=== PATIENT | male | born 1985 | race Caucasian/White ===

== ENCOUNTER 2019-09-17 16:17 | Emergency (ER) | payer OTHER, SELFPAY ==
[2019-09-17 16:48] VITALS: BP 140/71; PULSE 67; RESP 18; TEMP 37; O2SAT 99; BMI 20.9
--- NOTE | 2019-09-17 16:54 | DI.RAD.S_ITS ---
PROCEDURE: XR CHEST 1V INDICATIONS: chest pain TECHNIQUE: One view of the chest was acquired. COMPARISON: None. FINDINGS: Surgical changes and devices: None. Lungs and pleura: Lungs are clear. No pleural effusions or pneumothorax. Mediastinum: Mediastinal contours appear normal. Heart size is normal. Bones and chest wall: No suspicious bony lesions. Overlying soft tissues appear unremarkable. IMPRESSION: Portable chest within normal limits. Dictated by: Surjit Snow M.D. on 09/17/2019 at 16:05 Approved by: Surjit Snow M.D. on 09/17/2019 at 16:05
[2019-09-17 17:20] LABS: Add Manual Diff / Slide Review NO; Basophils Absolute Auto 100 /uL (0-100); Basophils Percent Auto 0.6 % (0-2); Eosinophils Absolute Auto 100 /uL (0-450); Eosinophils Percent Auto 1.2 % (2-4); Hematocrit 45.1 % (41-53); Hemoglobin 15.3 g/dL (13.5-17.5); Lymphocytes Absolute Auto 1400 /uL (1100-4500); Mean Corpuscular HGB Conc 33.8 % (30-36); Mean Corpuscular Hemoglobin 29.6 PG (26-34); Mean Corpuscular Volume 87.5 fL (80-100); Monocytes Absolute Auto 700 /uL (0-900); Monocytes Percent Auto 8.6 % (3-14); Neutrophils Absolute Auto 5900 /uL (1500-7000); Neutrophils Percent Auto 72.6 % (50-75); Platelet Count 283 X10^3/uL (150-400); Red Blood Cell Count 5.15 X10^6/uL (4.5-5.9); Red Cell Distribution Width 13.2 % (11.6-14.8); White Blood Cell Count 8.2 X10^3/uL (4.5-11.0)
[2019-09-17 17:30] LABS: Alanine Aminotransferase 20 IU/L (<50); Albumin 4.9 g/dL (3.5-5.0); Albumin Globulin Ratio 1.6 (1.0-2.8); Alkaline Phosphatase 73 U/L (38-126); Aspartate Aminotransferase 32 IU/L (17-59); BUN Creatinine Ratio 25.3 (6-22); Blood Urea Nitrogen 20 mg/dL (9-20); Calcium 9.6 mg/dL (8.4-10.2); Carbon Dioxide 26 mmol/L (22-32); Chloride 104 mmol/L (98-107); Creatine Kinase 197 U/L (55-170); Estimated Glomerular Filt Rate > 60.0 mL/min (>60); Glucose 84 mg/dL (70-100); HEMOLYSIS < 15 (0-50); Lipase 79 U/L (23-300); Potassium 4.2 mmol/L (3.4-5.1); Sodium 137 mmol/L (137-145); Total Protein 7.9 g/dL (6.3-8.2)
[2019-09-17 17:41] LABS: Troponin I < 0.012 ng/mL (0.01-0.034)
[2019-09-17 17:45] LABS: CKMB % Relative Index 0.3 % (1.5-5.0); Creatine Kinase MB 0.53 ng/mL (<2.37)
--- NOTE | 2019-09-17 18:47 | ED.CHESTPAIN ---
HPI - Chest Pain General Chief Complaint: Chest Pain Stated Complaint: nausea,dizziness,heart pains, tightness Time Seen by Provider: 09/17/19 18:47 Source: patient Mode of arrival: Ambulatory Limitations: no limitations History of Present Illness HPI narrative: 33-year-old gentleman presents with severe reflux type symptoms for the last 3 days, concurrent black diarrhea, dizziness and heart irregularities. On further questioning he has been taking Pepto-Bismol to help with the reflux which likely explains the black diarrhea that he has been having. The heart irregularities have been going on for a number of years are not associated with exercise, pain dyspnea or diaphoresis. He notices them most when he is almost ready to go to sleep and everything is calm and quiet and notes more an irregularity ?sensation?. Patient carries a diagnosis of a pre Parkinson's type neurologic syndrome. He has had chronic dizziness and minor neurologic complaints for a number of years none of this has changed recently. Related Data Previous Rx's Medication Instructions Recorded benzonatate 100 mg capsule 100 mg PO BEDTIME #20 cap 09/13/18 promethazine 6.25 mg-codeine 10 5 ml PO Q6H PRN #473 ml 09/13/18 mg/5 mL syrup omeprazole 40 mg PO DAILY #14 cap 09/17/19 Allergies Allergy/AdvReac Type Severity Reaction Status Date / Time benzonatate Allergy Severe Anaphylaxis Verified 09/17/19 16:48 Review of Systems Review of Systems Narrative: Pertinent positive and negative findings as per HPI Remainder of review of systems is otherwise unremarkable for Constitutional: Fevers, chills, weakness ENT: No sore throat, neck pain, ear pain CV: Chest pain, dyspnea on exertion Respiratory: Cough, wheeze, dyspnea GI: Nausea, vomiting, : Dysuria, hematuria, flank pain MS: Muscle weakness, joint swelling or warmth Skin: Rashes, nonhealing lesions Neuro: Syncope, Endocrine: Fatigue, heat or cold intolerance, very dry skin Heme: Easy bruising or bleeding Allergy: Seasonal rhinorrhea, itchy eyes Patient History Medical History Acid reflux (Acute) Paroxysmal kinesogenic dyskinesia (Acute) Sinus arrhythmia (Acute) Social History Smoking Status: Never smoker Smoking Status: Never smoker Substance Use Type: marijuana Exam Narrative Exam Narrative: General: Healthy appearing, in no acute distress. Able to give a complete and coherent history. Well-nourished well-developed HEENT: Moist mucous membranes, normal sclera with reactive pupils, Neck: No JVD, supple Respiratory: Lungs are clear to auscultation, no wheezing no rales no rhonchi. Full and symmetrical air movement Cardiac: Regular rate and rhythm no murmurs no bruits Abdomen: Soft minor epigastric tenderness without rebound or guarding good bowel tones, no flank pain Rectal: Black stool but guaiac negative (has been taking Pepto-Bismol) Skin: Warm and dry, no rashes Neurologic: Grossly neurologically intact with no obvious asymmetries or abnormalities Extremities: No trauma, well perfused Psych: Cooperative, appropriate insight and affect Initial Vital Signs Initial Vital Signs: Vital Signs Temperature 98.6 F 09/17/19 16:48 Pulse Rate 67 09/17/19 16:48 Respiratory Rate 18 09/17/19 16:48 Blood Pressure 140/71 09/17/19 16:48 Pulse Oximetry 99 09/17/19 16:48 Course Orders Ordered: ED Orders 09/17/19 16:24 EKG-12 Lead Stat 09/17/19 16:54 XR chest 1V Stat 09/17/19 17:07 Complete Blood Count AUTO DIFF Stat Comprehensive Metabolic Panel Stat Lipase Stat Troponin & CK Cardiac Panel Stat Vital Signs Vital signs: Vital Signs - 8 hr 09/17/19 16:48 09/17/19 19:15 Temperature 98.6 F Pulse Rate 67 61 Respiratory Rate 18 20 Blood Pressure 140/71 123/78 Pulse Oximetry 99 97 MDM - Chest Pain Medical Records Data Attestation: I reviewed the patient's medical records. Lab Data Attestation: I reviewed the patient's lab results. Result diagrams: 09/17/19 17:07 09/17/19 17:07 Labs: Lab Results 09/17/19 09/17/19 Range/Units 17:07 17:07 WBC 8.2 (4.5-11.0) X10^3/uL RBC 5.15 (4.5-5.9) X10^6/uL Hgb 15.3 (13.5-17.5) g/dL Hct 45.1 (41-53) % MCV 87.5 (80-100) fL MCH 29.6 (26-34) PG MCHC 33.8 (30-36) % RDW 13.2 (11.6-14.8) % Plt Count 283 (150-400) X10^3/uL Neut % (Auto) 72.6 (50-75) % Lymph % (Auto) 17.0 L (25-40) % Murray % (Auto) 8.6 (3-14) % Eos % (Auto) 1.2 L (2-4) % Baso % (Auto) 0.6 (0-2) % Neut # (Auto) 5900 (7631-7918) /uL Lymph # (Auto) 1400 (3355-8693) /uL Murray # (Auto) 700 (0-900) /uL Eos # (Auto) 100 (0-450) /uL Baso # (Auto) 100 (0-100) /uL Sodium 137 (137-145) mmol/L Potassium 4.2 (3.4-5.1) mmol/L Chloride 104 (98-107) mmol/L Carbon Dioxide 26 (22-32) mmol/L BUN 20 (9-20) mg/dL Creatinine 0.79 (0.66-1.25) mg/dL Estimated GFR > 60.0 (>60) mL/min BUN/Creatinine Ratio 25.3 H (6-22) Glucose 84 (70-100) mg/dL Calcium 9.6 (8.4-10.2) mg/dL Total Bilirubin 2.0 H (0.2-1.3) mg/dL AST 32 (17-59) IU/L ALT 20 (<50) IU/L Alkaline Phosphatase 73 (38-126) U/L Total Creatine Kinase 197 H (55-170) U/L CK-MB (CK-2) 0.53 (<2.37) ng/mL CK-MB (CK-2) Rel Index 0.3 L (1.5-5.0) % Troponin I < 0.012 (0.01-0.034) ng/mL Total Protein 7.9 (6.3-8.2) g/dL Albumin 4.9 (3.5-5.0) g/dL Globulin 3.0 (1.7-4.1) g/dL Albumin/Globulin Ratio 1.6 (1.0-2.8) Lipase 79 (23-300) U/L MDM Narrative Medical decision making narrative: Main acute complaint is 3 days of significant reflux type symptoms. Takes minimal nonsteroidals. Labs are reassuring and no evidence of GI bleeding. Fourteen days of omeprazole follow-up with his primary care physician. Multiple other complaints including occasional dizziness, chest pain and palpitations symptoms are all chronic and have benign explanations. Reassurance is given. Have reviewed findings of his labs and normal chest x-ray. Encouraged follow-up with his primary care physician. Patient is safe for home discharge Discharge Plan Departure Patient Disposition: Home Clinical Impression: Sinus arrhythmia Acid reflux Qualifiers: Esophagitis presence: esophagitis presence not specified Qualified Code(s): K21.9 - Gastro-esophageal reflux disease without esophagitis Diarrhea Qualifiers: Diarrhea type: unspecified type Qualified Code(s): R19.7 - Diarrhea, unspecified Discharge Date/Time: 09/17/19 19:26 Instructions: DI for Arrhythmias Activity Restrictions/Additional Instructions: Thank you for coming in today Your lab work and exam are very reassuring. As we discussed, watching your heart rhythm while we were talking he have a mild sinus arrhythmia which is entirely benign and will not go on to be worsening heart issues. I suspect that that is the sensation that your feeling when it is quiet and you consents your heart beat more. With the significant reflux and diarrhea that you have had for the last 3 days there is no evidence of bleeding from your stomach. It may be a a mild viral infection. For the next 2 weeks I am going to suggest you take a proton pump inhibitor, omeprazole, to decrease the acid levels in your stomach. This prescription has been electronically transmitted to [facility] in [place] for you. If you notice the reflux returns after you stop the omeprozole, you will need to follow-up with your primary care physician to see if you need further stomach evaluation. Regarding the dizziness and neurologic symptoms that you have noticed, I suspect that this is related to her baseline neurologic diagnosis and a follow-up with a neurologist at least on a yearly basis is probably going to be very appropriate for you. Prescriptions: New omeprazole 40 mg capsule,delayed release(DR/EC) 40 mg PO DAILY Qty: 14 RF: 0 No Action benzonatate 100 mg capsule 100 mg PO BEDTIME Qty: 20 RF: 0 promethazine-codeine 6.25-10 mg/5 mL syrup 5 ml PO Q6H PRN (Reason: cough) Qty: 473 RF: 0
[2019-09-17 19:15] VITALS: BP 123/78; PULSE 61; RESP 20; O2SAT 97
== END 2019-09-17 19:26 | disposition home or self-care (01) ==
PROVIDERS: Emergency Medicine; Emergency Provider Emergency Medicine
DX: I49.8 Other specified cardiac arrhythmias (principal); K21.9 Gastro-esophageal reflux disease without esophagitis; R42 Dizziness and giddiness; R19.7 Diarrhea, unspecified; G24.1 Genetic torsion dystonia; R07.9 Chest pain, unspecified
CPT/HCPCS: 36415; 71045; 80053; 82550; 82553; 83690; 84484; 85025; 93005; 99284